=== PATIENT | female | born 1980 | race Caucasian/White ===

== ENCOUNTER → 2018-09-19 | Outpatient (CLI) | payer OTHER ==
--- NOTE | 2018-09-19 14:49 | XR ---
EXAMINATION TYPE: XR cervical spine comp DATE OF EXAM: 09/19/2018 TECHNIQUE: Frontal, lateral, oblique, and open mouth view of the cervical spine are obtained. HISTORY: PAIN (see order RE: upper thoracic spine) neck pain. COMPARISON: Cervical spine x-ray February 13, 2014 FINDINGS: The cervical spine is visualized in its entirety from C1 thru the top of T1 level, it rede monstrates satisfactory in alignment without evidence of acute fracture or dislocation. The pre-vert ebral soft tissue appears within normal limits. The C1-C2 articulation is within normal limits on th e open mouth view. Vertebral body heights and disc space heights are maintained. The oblique images are within normal limits. Overlying soft tissue is unremarkable. IMPRESSION: Unremarkable study. No significant change from prior.
== END ==
LOC: RADXRMAIN 13:55
PROVIDERS: ATTEND Family Medicine
DX: M54.2 Cervicalgia (principal)
CPT/HCPCS: 72050

== ENCOUNTER → 2018-09-20 | Outpatient (CLI) | payer OTHER ==
--- NOTE | 2018-09-25 17:09 | P.HOLTER ---
24-year-old to monitor shows sinus mechanism with hydrogen from 46-120 beats a minute to 70 beats a minute Occasional premature beats No arrhythmias
== END | disposition home or self-care (01) ==
LOC: RADECHMAIN 12:29
PROVIDERS: ATTEND Family Medicine
DX: R00.2 Palpitations (principal); I49.40 Unspecified premature depolarization
CPT/HCPCS: 93225; 93226

== ENCOUNTER → 2019-01-25 | Outpatient (CLI) | payer OTHER ==
--- NOTE | 2019-01-25 17:22 | XR ---
EXAMINATION TYPE: XR knee complete LT DATE OF EXAM: 01/25/2019 COMPARISON: NONE HISTORY: Knee pain TECHNIQUE: 3 views FINDINGS: I see no fracture nor dislocation. Joint spaces are normal. There is no sign of knee joint effusion. IMPRESSION: Negative left knee exam.
== END | disposition home or self-care (01) ==
LOC: RADXRMAIN 16:35
PROVIDERS: ATTEND Emergency Medicine
DX: S83.92XA Sprain of unspecified site of left knee, initial encounter (principal)

== ENCOUNTER → 2019-03-12 | Outpatient (CLI) | payer OTHER ==
--- NOTE | 2019-03-13 08:15 | MM ---
Reason for exam: screening (asymptomatic). Baseline mammogram. Physical Findings: Nurse did not find any significant physical abnormalities on exam. MG Screening Mammo w CAD Bilateral CC and MLO view(s) were taken. The breast tissue is heterogeneously dense. This may lower the sensitivity of mammography. No suspicious abnormality. These results were verbally communicated with the patient and result sheet given to the patient on 03/12/19. ASSESSMENT: Negative, BI-RAD 1 RECOMMENDATION: Routine screening mammogram of both breasts in 1 year.
== END | disposition home or self-care (01) ==
LOC: RADMAMWWP 15:06
PROVIDERS: ATTEND Obstetrics & Gynecology
DX: Z12.31 Encounter for screening mammogram for malignant neoplasm of breast (principal)
CPT/HCPCS: 77067